=== PATIENT | male | born 1960 | race Caucasian/White ===

== ENCOUNTER 2017-04-28 10:20 | Emergency (ER) | payer OTHER ==
[2017-04-28 10:50] VITALS: BP 184/85
--- NOTE | 2017-04-28 11:05 | RAD ---
INDICATION: Chest pain. COMPARISON: Comparison is made with a prior chest x-ray study from April 27, 2015. TECHNIQUE: A portable view of the chest was obtained. FINDINGS: Cardiac and mediastinal contours appear to be within normal limits. The lungs are clear. No pleural effusion is seen. IMPRESSION: NO EVIDENCE FOR ACUTE DISEASE.
[2017-04-28 11:30] LABS: Hematocrit 49 % (42-52); Hemoglobin 15.9 g/dl (14.0-18.0); Mean Corpuscular HGB Conc 33 g/dl (31-36); Mean Corpuscular Hemoglobin 28 pg (27-31); Mean Corpuscular Volume 87 fL (80-94); Mean Platelet Volume 8 um3 (7.4-10.4); Red Blood Count 5.64 10^6/ul (4.0-5.4); Red Cell Distribution Width 14 % (10.5-15); White Blood Count 11.7 10^3/ul (3.5-10.8)
[2017-04-28 11:44] LABS: Albumin 4.1 g/dL (3.2-5.2); BUN/Creatinine Ratio 14.3 (8-20); Calcium 9.1 mg/dL (8.6-10.3); EGFR African American 110.4 (>60); EGFR Non-African American 85.9 (>60); Globulin 3.2 g/dL (2-4); Potassium 3.8 mmol/L (3.5-5.0); Total Bilirubin 0.6 mg/dL (0.2-1.0); Total Protein 7.3 g/dL (6.4-8.9)
[2017-04-28 11:49] LABS: Troponin I 0.01 ng/mL (<0.04)
[2017-04-28] MEDS ORDERED: oxyCODONE/Acetamin 5/325 MG* TAB PO ONE (12:15)
[2017-04-28 12:20] LABS: TSH (Thyroid Stimulating Horm) 1.09 mcIU/mL (0.34-5.60)
[2017-04-28] MEDS ORDERED: Ketorolac INJ* 30 MG/ML 1 ML VIAL IV PUSH ONE (14:05)
--- NOTE | 2017-04-29 17:01 | ED ---
Jolly Wei Rebecca, scribed for Artis Hardy MD on 04/28/17 at 1035 . HPI Chest Pain - HPI Summary HPI Summary: Pt is a 56 y/o M who presents to ED c/o CP. 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 Sx have been constant since onset, characterized as tightness, initially ranked as severe and now mild, ranked 2/10. Pain is in the midsternal region with radiation to the neck and jaw initially, though now it is discrete to the midsternum. Sx aggravated by nothing, alleviated by 324 mg ASA, administered by EMS PRODUCT DIRECTOR. Additionally c/o palpitations and lightheadedness (near-syncopal). Denies N/V, diaphoresis, SOB. SHx current smoker (1.5 PPD). Last had a stress test 3 years ago. No PMHx [place]. - History of Current Complaint Hx Obtained From: Patient Onset/Duration: Started Hours Ago - 2.5 hours PRODUCT DIRECTOR, Still Present Time of Onset: 08:00 Timing: Constant Initial Severity: Severe Current Severity: Mild Pain Intensity: 2 Pain Scale Used: 0-10 Numeric Chest Pain Location: Mid Sternal Chest Pain Radiates: Yes Chest Pain Radiates To:: Jaw - Previously, Neck - Previously Character: Tightness Aggravating Factor(s): Nothing Alleviating Factor(s): EMS Tx - 324 mg ASA PRODUCT DIRECTOR Associated Signs and Symptoms: Positive: Lightheadedness - near-syncopal, Palpitations. Negative: Shortness of Breath, Diaphoresis, Nausea, Vomiting - Allergy/Home Medications Allergies/Adverse Reactions: Allergies Allergy/AdvReac Type Severity Reaction Status Date / Time No Known Allergies Allergy Verified 04/21/17 10:28 PMH/Surg Hx/FS Hx/Imm Hx Endocrine/Hematology History: Denies: Hx Anticoagulant Therapy, Hx Diabetes Cardiovascular History: Reports: Hx Hypertension Denies: Hx Angina, Hx Coronary Artery Disease, Hx Myocardial Infarction, Hx Pacemaker/ICD, Hx Valvular Heart Disease Comment Only: Hx Hypercholesterolemia - unsure Respiratory History: Denies: Hx Asthma, Hx Chronic Obstructive Pulmonary Disease (COPD) History: Denies: Hx Renal Disease Musculoskeletal History: Reports: Hx Back Problems - chronic Sensory History: Reports: Hx Contacts or Glasses - Readers Denies: Hx Hearing Aid Opthamlomology History: Reports: Hx Contacts or Glasses - Readers Psychiatric History: Denies: Hx Panic Disorder - Surgical History Surgery Procedure, Year, and Place: FATTY CORPUSCLE REMOVED FROM L LEG 2002 - Immunization History Date of Tetanus Vaccine: Unsure Date of Influenza Vaccine: None - Family History Known Family History: Positive: Renal Disease - father, Other - stroke (father) - Social History Occupation: Employed Full-time - cdl dedicated truck driver Lives: With Family Alcohol Use: None Hx Substance Use: Yes Substance Use Type: Reports: Marijuana Substance Use Comment - Amount & Last Used: percocet Hx Tobacco Use: Yes Smoking Status (MU): Current Every Day Smoker Type: Cigarettes Amount Used/How Often: 1.5 PPD Length of Time of Smoking/Using Tobacco: 37 years Have You Smoked in the Last Year: Yes Review of Systems Negative: Skin Diaphoresis Positive: Palpitations, Chest Pain Negative: Shortness Of Breath Negative: Vomiting, Nausea Positive: Syncope - lightheadedness/near-syncopal All Other Systems Reviewed And Are Negative: Yes Physical Exam - Summary Physical Exam Summary: VITAL SIGNS: Reviewed. GENERAL: ~Patient is a well-developed and nourished male who is lying comfortable in the stretcher. ~Patient is not in any acute respiratory distress. HEAD AND FACE: No signs of trauma. ~No ecchymosis, hematomas or skull depressions. No sinus tenderness. EYES: PERRLA, EOMI x 2, No injected conjunctiva, no nystagmus. EARS: Hearing grossly intact. Ear canals and tympanic membranes are within normal limits. MOUTH: Oropharynx within normal limits. NECK: Supple, trachea is midline, no adenopathy, no JVD, no carotid bruit, no c- spine tenderness, neck with full ROM. CHEST: Symmetric, no tenderness at palpation LUNGS: Clear to auscultation bilaterally. No wheezing or crackles. CVS: Regular rate and rhythm, S1 and S2 present, no murmurs or gallops appreciated. ABDOMEN: Soft, non-tender. No signs of distention. No rebound no guarding, and no masses palpated. Bowel sounds are normal. EXTREMITIES: FROM in all major joints, no edema, no cyanosis or clubbing. NEURO: Alert and oriented x 3. No acute neurological deficits. Speech is normal and follows commands. SKIN: Dry and warm Triage Information Reviewed: Yes Vital Signs On Initial Exam: Initial Vitals Temp Pulse Resp BP Pulse Ox 99.2 F 58 16 184/85 97 04/28/17 10:35 04/28/17 10:35 04/28/17 10:35 04/28/17 10:35 04/28/17 10:35 Vital Signs Reviewed: Yes Diagnostics - Vital Signs Vital Signs Temp Pulse Resp BP Pulse Ox 04/28/17 15:00 52 96 04/28/17 14:00 49 12 96 04/28/17 13:00 47 95 04/28/17 12:20 16 04/28/17 12:00 51 19 94 04/28/17 11:49 17 04/28/17 11:48 51 04/28/17 10:35 99.2 F 58 16 184/85 97 - Laboratory Lab Results: Lab Results 04/28/17 04/28/17 04/28/17 Range/Units 11:20 11:20 11:20 WBC 11.7 H (3.5-10.8) 10^3/ul RBC 5.64 H (4.0-5.4) 10^6/ul Hgb 15.9 (14.0-18.0) g/dl Hct 49 (42-52) % MCV 87 (80-94) fL MCH 28 (27-31) pg MCHC 33 (31-36) g/dl RDW 14 (10.5-15) % Plt Count 200 (150-450) 10^3/ul MPV 8 (7.4-10.4) um3 Neut % (Auto) 69.0 (38-83) % Lymph % (Auto) 22.4 L (25-47) % Andrews % (Auto) 5.9 (1-9) % Eos % (Auto) 0.9 (0-6) % Baso % (Auto) 1.8 (0-2) % Absolute Neuts (auto) 8.1 H (1.5-7.7) 10^3/ul Absolute Lymphs (auto) 2.6 (1.0-4.8) 10^3/ul Absolute Monos (auto) 0.7 (0-0.8) 10^3/ul Absolute Eos (auto) 0.1 (0-0.6) 10^3/ul Absolute Basos (auto) 0.2 (0-0.2) 10^3/ul Absolute Nucleated RBC 0 10^3/ul Nucleated RBC % 0 Sodium 135 (133-145) mmol/L Potassium 3.8 (3.5-5.0) mmol/L Chloride 101 (101-111) mmol/L Carbon Dioxide 27 (22-32) mmol/L Anion Gap 7 (2-11) mmol/L BUN 13 (6-24) mg/dL Creatinine 0.91 (0.67-1.17) mg/dL Est GFR ( Amer) 110.4 (>60) Est GFR (Non-Af Amer) 85.9 (>60) BUN/Creatinine Ratio 14.3 (8-20) Glucose 90 (70-100) mg/dL Lactic Acid 1.2 (0.5-2.0) mmol/L Calcium 9.1 (8.6-10.3) mg/dL Total Bilirubin 0.60 (0.2-1.0) mg/dL AST 17 (13-39) U/L ALT 19 (7-52) U/L Alkaline Phosphatase 70 (34-104) U/L CK-MB (CK-2) 3.6 (0.6-6.3) ng/mL Myoglobin 32.6 (17.4-105.7) ng/mL Troponin I 0.01 (<0.04) ng/mL B-Natriuretic Peptide ( - 100) pg/mL Total Protein 7.3 (6.4-8.9) g/dL Albumin 4.1 (3.2-5.2) g/dL Globulin 3.2 (2-4) g/dL Albumin/Globulin Ratio 1.3 (1-3) TSH 1.09 (0.34-5.60) mcIU/mL 04/28/17 04/28/17 Range/Units 11:20 13:56 WBC (3.5-10.8) 10^3/ul RBC (4.0-5.4) 10^6/ul Hgb (14.0-18.0) g/dl Hct (42-52) % MCV (80-94) fL MCH (27-31) pg MCHC (31-36) g/dl RDW (10.5-15) % Plt Count (150-450) 10^3/ul MPV (7.4-10.4) um3 Neut % (Auto) (38-83) % Lymph % (Auto) (25-47) % Andrews % (Auto) (1-9) % Eos % (Auto) (0-6) % Baso % (Auto) (0-2) % Absolute Neuts (auto) (1.5-7.7) 10^3/ul Absolute Lymphs (auto) (1.0-4.8) 10^3/ul Absolute Monos (auto) (0-0.8) 10^3/ul Absolute Eos (auto) (0-0.6) 10^3/ul Absolute Basos (auto) (0-0.2) 10^3/ul Absolute Nucleated RBC 10^3/ul Nucleated RBC % Sodium (133-145) mmol/L Potassium (3.5-5.0) mmol/L Chloride (101-111) mmol/L Carbon Dioxide (22-32) mmol/L Anion Gap (2-11) mmol/L BUN (6-24) mg/dL Creatinine (0.67-1.17) mg/dL Est GFR ( Amer) (>60) Est GFR (Non-Af Amer) (>60) BUN/Creatinine Ratio (8-20) Glucose (70-100) mg/dL Lactic Acid (0.5-2.0) mmol/L Calcium (8.6-10.3) mg/dL Total Bilirubin (0.2-1.0) mg/dL AST (13-39) U/L ALT (7-52) U/L Alkaline Phosphatase (34-104) U/L CK-MB (CK-2) (0.6-6.3) ng/mL Myoglobin (17.4-105.7) ng/mL Troponin I 0.01 (<0.04) ng/mL B-Natriuretic Peptide 56 ( - 100) pg/mL Total Protein (6.4-8.9) g/dL Albumin (3.2-5.2) g/dL Globulin (2-4) g/dL Albumin/Globulin Ratio (1-3) TSH (0.34-5.60) mcIU/mL Result Diagrams: 04/28/17 11:20 04/28/17 11:20 Lab Statement: Any lab studies that have been ordered have been reviewed, and results considered in the medical decision making process. - Radiology CXR Xray Interpretation: No Acute Changes - NO EVIDENCE FOR ACUTE DISEASE. Radiology Interpretation Completed By: Radiologist - EKG 1133 Cardiac Rate: Bradycardia - 50 bpm EKG Rhythm: Sinus Bradycardia EKG Interpretation: ST depressions in V1, V2, V4-V6, no ST elevation EKG Comparison: No Significant Change - Similar to EKG on 02/22/2016 Chest Pain Course/Dx - Course Assessment/Plan: Pt is a 56 y/o M who presents to ED c/o CP. 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 Sx have been constant since onset, characterized as tightness, initially ranked as severe and now mild, ranked 2/10. Pain is in the midsternal region with radiation to the neck and jaw initially, though now it is discrete to the midsternum. Sx aggravated by nothing, alleviated by 324 mg ASA, administered by EMS PRODUCT DIRECTOR. Additionally c/o palpitations and lightheadedness (near -syncopal). Denies N/V, diaphoresis, SOB. SHx current smoker (1.5 PPD). Last had a stress test 3 years ago. No PMHx [place]. Test results WNL except for a slight increase in WBC. Troponin #1 is 0.01 and 4 hours later, 2nd troponin is 0.0. The patient at this point is asymptomatic, he does not have any CP. The CXR shows no evidence of acute disease and the EKG is NSR, unchanged from previous. Seeing as patient is asymptomatic, I believe that the patient can be D /C home safely and follow up with PCP and mold capper. He was given instruction to return to ED if he develops any other pain in the chest, SOB, N/V , fever or chills. He understands and agrees. He is hemodynamically stable and AxOx3. I discussed all the findings and test results with the patient. Patient was instructed to return to the emergency room immediately if any of the symptoms return or worsens. Plan of care was discussed with the patient and understands and agrees. All questions were answered at patient satisfaction. There were no further complaints or concerns. Lung exam before discharge: CTA B /L. Good air exchange. No wheezing or crackles heard. CVS: S1 and S2 present. No murmurs appreciated. Patient is alert and oriented x 3. Patient is hemodynamically stable. Patient will be discharged home with follow up PCP in the next 2-3 days - Chest Pain Differential Diagnosis/HQI/PQRI: Acute [place], ACS, Angina, CHF, Chest Wall, GI Disease - Diagnoses Provider Diagnoses: asymptomatic bradycardia, Chest pain Discharge - Discharge Plan Condition: Stable Disposition: HOME Patient Education Materials: Chest Pain (ED), Bradycardia (ED) Forms: *Gen. Provider Communication Referrals: Syed Terrell MD [Primary Care Provider] - 3 Days The documentation as recorded by the Jolly jolly Rebecca accurately reflects the service I personally performed and the decisions made by Antony escamilla Walter, MD.
== END 2017-04-28 15:14 | disposition home or self-care (01) ==
LOC: ED 10:20
DX: R00.1 Bradycardia, unspecified (principal); R42 Dizziness and giddiness; R07.9 Chest pain, unspecified
CPT/HCPCS: 36415; 71010; 80053; 82553; 83605; 83874; 83880; 84443; 84484; 85025; 93005; 96374; 99282; A9270-GY; J1885

== ENCOUNTER 2018-01-25 13:11 | Emergency (ER) | payer OTHER ==
[2018-01-25 15:12] VITALS: BP 114/61
== END 2018-01-25 16:00 | disposition left against medical advice (07) ==
LOC: ED 13:11
DX: R05 Cough (principal); Z53.21 Procedure and treatment not carried out due to patient leaving prior to being seen by health care provider

== ENCOUNTER → 2018-08-27 10:42 | Emergency (ER) | payer OTHER ==
[2018-08-27 11:33] LABS: ABS Basophils 0.1 10^3/ul (0-0.2); ABS Eosinophils 0.1 10^3/ul (0-0.6); ABS Lymphocytes 2.8 10^3/ul (1.0-4.8); ABS Monocytes 0.5 10^3/ul (0-0.8); ABS Neutrophils 7.1 10^3/ul (1.5-7.7); ABS Nucleated RBC 0.1 10^3/ul; Eosinophil % 1.2 % (0-6); Hematocrit 44 % (42-52); Lymphocyte % 26.2 % (25-47); Mean Corpuscular HGB Conc 34 g/dl (31-36); Mean Corpuscular Hemoglobin 29 pg (27-31); Mean Corpuscular Volume 87 fL (80-94); Mean Platelet Volume 8.1 um3 (7.4-10.4); Nucleated Red Blood Cells % 0.4; Platelet Count 237 10^3/ul (150-450); Red Blood Count 5.11 10^6/ul (4.00-5.40); Red Cell Distribution Width 14 % (10.5-15); White Blood Count 10.5 10^3/ul (3.5-10.8)
[2018-08-27 11:55] LABS: EGFR Non-African American 95.2 (>60)
[2018-08-27 13:49] VITALS: BP 146/80
== END | disposition home health service (06) ==
LOC: ED 10:42
DX: R53.83 Other fatigue (principal); Z53.21 Procedure and treatment not carried out due to patient leaving prior to being seen by health care provider
CPT/HCPCS: 36415; 80053; 83735; 85025; 86140; 86618; 99281

== ENCOUNTER 2022-09-12 16:38 | Observation (INO) ==
[2022-09-12] MEDS ORDERED: Iodixanol (CONTRAST) 320 MG/ML 100 ML SDV IV ONE (16:51)
[2022-09-12 17:41] LABS: ABS Basophils 0.1 10^3/ul (0-0.2); ABS Lymphocytes 1.9 10^3/ul (1.0-4.8); ABS Monocytes 0.6 10^3/ul (0-0.8); Eosinophil % 0.5 %; Hematocrit 46 % (42-52); Hemoglobin 15.5 g/dL (14.0-18.0); Mean Corpuscular HGB Conc 34 g/dL (31-36); Mean Corpuscular Hemoglobin 30 pg (27-31); Mean Corpuscular Volume 89 fL (80-94); Mean Platelet Volume 8.2 fL (7.4-10.4); Platelet Count 214 10^3/uL (150-450); Red Blood Count 5.15 10^6 /uL (4.18-5.48); Red Cell Distribution Width 15 % (10-15); White Blood Count 8.6 10^3/uL (3.5-10.8)
[2022-09-12 17:47] LABS: INR 1.16 (0.89-1.11)
[2022-09-12 18:20] LABS: Albumin 3.4 g/dL (3.2-5.2); Albumin/Globulin Ratio 1.5 (1-3); Calcium 7.8 mg/dL (8.6-10.3); Globulin 2.2 g/dL (2-4); Potassium 3.8 mmol/L (3.5-5.0); Total Protein 5.6 g/dL (6.4-8.9); eGFR CKD-EPI 100.4 (>60)
[2022-09-12] MEDS ORDERED: Morphine 4 MG/ML VIAL (1 ml) IV ONE (18:35)
[2022-09-12 18:52] LABS: High Sensitivity Troponin 1 Hr 6 pg/mL (<20)
[2022-09-12] MEDS ORDERED: Enoxaparin 40 MG/0.4 ML SYR SUBCUT SCH (22:00)
[2022-09-12] MEDS: Morphine 2 MG/ML SYRINGE IV PRN (22:00)
[2022-09-12 23:59] LABS: Urine Appearance Clear; Urine Bilirubin Negative (Negative); Urine Blood Negative (Negative); Urine Color Yellow; Urine Glucose Negative (Negative); Urine Ketones 1+ (Negative); Urine Nitrite Negative (Negative); Urine Protein Negative (Negative); Urine Specific Gravity 1.056 (1.002-1.030); Urine Urobilinogen Positive (Negative)
[2022-09-13] MEDS ORDERED: hydrALAZINE 20 mg/ml 1 ML Vial IV IV SLOW PU ONE (00:09)
[2022-09-13] MEDS: Morphine 2 MG/ML SYRINGE IV PRN ×3 (02:27→12:07)
[2022-09-13 06:29] LABS: ABS Basophils 0.1 10^3/ul (0-0.2); ABS Eosinophils 0.2 10^3/ul (0-0.6); ABS Lymphocytes 3.1 10^3/ul (1.0-4.8); ABS Monocytes 0.8 10^3/ul (0-0.8); ABS Neutrophils 6.4 10^3/ul (1.5-7.7); Eosinophil % 1.7 %; Hematocrit 46 % (42-52); Hemoglobin 15.4 g/dL (14.0-18.0); Lymphocyte % 29.6 %; Mean Corpuscular HGB Conc 33 g/dL (31-36); Mean Corpuscular Hemoglobin 30 pg (27-31); Mean Corpuscular Volume 89 fL (80-94); Mean Platelet Volume 8.2 fL (7.4-10.4); Nucleated Red Blood Cells % 0.1; Platelet Count 213 10^3/uL (150-450); Red Blood Count 5.19 10^6 /uL (4.18-5.48); Red Cell Distribution Width 14 % (10-15); White Blood Count 10.5 10^3/uL (3.5-10.8)
[2022-09-13 07:33] LABS: eGFR CKD-EPI 126.3 (>60)
[2022-09-13 07:55] LABS: Potassium 2.4 mmol/L (3.5-5.0)
[2022-09-13] MEDS ORDERED: Nicotine PATCH 21 MG/24 HR PATCH TRANSDERM SCH (09:00)
[2022-09-13 09:33] LABS: Calcium 8.3 mg/dL (8.6-10.3); Potassium 4.1 mmol/L (3.5-5.0); eGFR CKD-EPI 99.3 (>60)
[2022-09-13] MEDS ORDERED: Regadenoson 0.4 MG/5 ML SYRINGE ONE (10:13)
[2022-09-13 17:14] VITALS: BP 160/65
== END 2022-09-13 17:13 | disposition home or self-care (01) ==
LOC: ED 16:38 → EDHOLD 16:38
PROVIDERS: ADMIT Hospitalist; ATTEND Hospitalist

== ENCOUNTER 2023-12-11 05:36 | Observation (INO) ==
[~2023-12-11 05:36] MED LIST: Buffered Lidocaine 1% SYRIN 1 ml INTRADERM ONE; Metoclopramide 5 MG/ML VIAL (10 mg) IV PRN; Naloxone 0.4 mg VIAL 0.4 mg/ml 1 ml VIAL IV PRN; Ondansetron 4 mg VIAL 2 MG/ML 2 ml VIAL IV PRN; fentaNYL 100 mcg/2 ml 50 MCG/ML VIAL IV PRN
[2023-12-11 06:31] LABS: Rapid COVID-19 Molecular Undetected (Undetected)
[2023-12-11] MEDS ORDERED: Scopolamine 1 mg/72hr PATCH ONE (06:31)
[2023-12-11] MEDS: Lactated Ringers 1000 ml BAG 1,000 ML IV SCH ×2 (06:37→10:24)
[2023-12-11] MEDS: Scopolamine 1 mg/72hr PATCH TRANSDERM ONE ×2 (06:37→10:51)
[2023-12-11] MEDS ORDERED: Lidocaine 2% PF 5 ML VIAL ONE (07:07)
[2023-12-11] MEDS ORDERED: fentaNYL 100 mcg/2 ml 50 MCG/ML VIAL ONE ×2 (07:07→07:53)
[2023-12-11] MEDS ORDERED: Glycopyrrolate IV 0.2 MG/ML 1 ML VIAL ONE (07:07)
[2023-12-11] MEDS ORDERED: Propofol 10 MG/ML 20 ML BTL ONE (07:07)
[2023-12-11] MEDS ORDERED: Ondansetron 4 mg VIAL 2 MG/ML 2 ml VIAL ONE (07:07)
[2023-12-11] MEDS ORDERED: Dexamethasone IV 4 MG/ML VIAL 1 ml VIAL ONE (07:07)
[2023-12-11] MEDS ORDERED: Ondansetron 4 mg VIAL 2 MG/ML 2 ml VIAL IV PRN (07:21)
[2023-12-11] MEDS ORDERED: Phenylephrine 40 mcg/mL 10mL (400mcg) SYRINGE ONE (07:45)
[2023-12-11] MEDS ORDERED: Gentamicin ADULT 360 MG in NS 0.9% 100 ml BAG 100 ML IVPB ONE (08:00)
[2023-12-11] MEDS ORDERED: Ampicillin ADVAN 2 GM in NS 0.9% 100 ML 100 ML IVPB ONE (08:00)
[2023-12-11] MEDS ORDERED: Furosemide 20 mg/2 ml IV VIAL ONE (08:22)
[2023-12-11] MEDS ORDERED: Phenylephrine IV 10 MG/ML 1 ml VIAL ONE (08:27)
[2023-12-11] MEDS: Magnesium Hydroxide LIQ 30 ML UDC PO SCH ×2 (10:52→21:11)
[2023-12-11] MEDS: Neomycin/Polym/Bacit TOP OINT 15 GM TOPICAL SCH ×5 (10:52→22:49)
[2023-12-11] MEDS: NS 0.9% 1000 ml BAG 1,000 ML IV SCH ×2 (11:09→19:27)
[2023-12-12] MEDS: NS 0.9% 1000 ml BAG 1,000 ML IV SCH (03:39)
[2023-12-12 05:43] VITALS: BP 109/66
[2023-12-12] MEDS: Magnesium Hydroxide LIQ 30 ML UDC PO SCH (08:36)
[2023-12-12] MEDS: Neomycin/Polym/Bacit TOP OINT 15 GM TOPICAL SCH (09:02)
== END 2023-12-12 10:05 | disposition home or self-care (01) ==
LOC: OR 05:36 → SSU 05:36
PROVIDERS: ADMIT Urology; ATTEND Urology

== ENCOUNTER 2024-03-09 23:41 | Observation (INO) ==
[2024-03-09 23:57] LABS: ABS Basophils 0.1 10^3/uL (0.0-0.1); ABS Eosinophils 0.2 10^3/uL (0.0-0.5); ABS Lymphocytes 2.4 10^3/uL (1.0-4.8); ABS Monocytes 0.8 10^3/uL (0.0-1.1); ABS Neutrophils 4.9 10^3/uL (1.5-7.6); ABS Nucleated RBC 0.01 10^3/ul; Eosinophil % 1.8 %; Hematocrit 40.9 % (38-53); Hemoglobin 13.9 g/dL (13.2-16.3); Lymphocyte % 28.6 %; Mean Corpuscular Hemoglobin 30.1 pg (27-33); Mean Corpuscular Hgb Conc 33.9 g/dL (31-36); Mean Corpuscular Volume 88.6 fL (80-97); Mean Platelet Volume 7.6 fL (7.5-11.2); Nucleated Red Blood Cells % 0.1 %/100WBC (0.0-0.8); Platelet Count 204 10^3/uL (150-450); Red Blood Count 4.61 10^6/uL (4.06-5.63); Red Cell Distribution Width 14.8 % (12-17); White Blood Count 8.3 10^3/uL (3.6-10.2)
[2024-03-09] MEDS: Iodixanol (CONTRAST) 320 MG/ML 100 ML SDV IV ONE (23:59)
[2024-03-10 00:17] LABS: Activated Partial Thrombo Time 27.7 seconds (26.0-38.0); INR 1.12 (0.83-1.13)
[2024-03-10 00:58] LABS: Direct Bilirubin 0.1 mg/dL (0.03-0.18)
[2024-03-10 00:59] LABS: ALT 17 U/L (7-52); Albumin 3.8 g/dL (3.2-5.2); Albumin/Globulin Ratio 1.6 (1-3); Alkaline Phosphatase 61 U/L (35-149); Anion Gap 7 mmol/L (2-16); Blood Urea Nitrogen 18 mg/dL (6-24); CO2 Carbon Dioxide 26 mmol/L (22-32); Calcium 8.6 mg/dL (8.6-10.3); Chloride 105 mmol/L (101-111); Cholesterol 167 mg/dL; Creatinine, Serum 0.91 mg/dL (0.67-1.17); Globulin 2.4 g/dL (2-4); Glucose 90 mg/dL (70-100); HDL Cholesterol 37.3 mg/dL; Indirect Bilirubin 0.3 mg/dL (0.3-1.0); LDL Cholesterol 84 mg/dL; Sodium 138 mmol/L (135-145); Total Bilirubin 0.4 mg/dL (0.2-1.0); Total Protein 6.2 g/dL (6.4-8.9); Triglycerides 230 mg/dL; eGFR CKD-EPI 94.1 (>60)
[2024-03-10 01:47] LABS: Potassium Redraw 4.4 mmol/L (3.5-5.0)
[2024-03-10 01:54] LABS: Urine Appearance Clear; Urine Bilirubin Negative (Negative); Urine Blood Negative (Negative); Urine Color Yellow; Urine Glucose Negative (Negative); Urine Ketones Negative (Negative); Urine Nitrite Negative (Negative); Urine Protein Trace (Negative); Urine Specific Gravity >1.050 (1.002-1.030); Urine Urobilinogen Negative (Negative); Urine pH 7.5 (5.0-8.0)
[2024-03-10] MEDS ORDERED: Enoxaparin 40 MG/0.4 ML SYR SUBCUT SCH (03:00)
[2024-03-10] MEDS: Enoxaparin 40 MG/0.4 ML SYR SUBCUT SCH ×2 (06:25→10:11)
[2024-03-10] MEDS: CMCS: Solifenacin 5 mg TAB (NF) PO SCH (10:11)
[2024-03-10 11:02] LABS: Magnesium 2.2 mg/dL (1.9-2.7)
[2024-03-10 12:21] VITALS: BP 154/62
== END 2024-03-10 15:42 | disposition home or self-care (01) ==
LOC: EDHOLD 23:41 → ED 23:41 → SUATTDRO 03-10 02:40 → EDHOLD 03-10 15:41
PROVIDERS: ADMIT Internal Medicine; ATTEND Student in an Organized Health Care Education/Training Program